=== PATIENT | female | born 1965 | race African-American/Black ===

== ENCOUNTER 2017-12-13 04:44 | Emergency (ER) | payer SELFPAY ==
[~2017-12-13] VITALS: Ht 180.3 cm; Wt 109.1 kg
[2017-12-13 05:15] VITALS: BP 142/95
[2017-12-13] MEDS ORDERED: OxyCODONE HCL/ACETAMINOPHEN 5-325 MG TABLET PO ONE (05:15)
[2017-12-13] MEDS ORDERED: CLINDAMYCIN HCL 150 MG CAPSULE PO ONE (05:15)
== END 2017-12-13 05:20 | disposition home or self-care (01) ==
LOC: EMS 04:44
DX: K04.7 Periapical abscess without sinus (principal); Z88.0 Allergy status to penicillin
CPT/HCPCS: 99283

== ENCOUNTER 2019-02-12 15:56 | Emergency (ER) | payer SELFPAY ==
[~2019-02-12] VITALS: Ht 180.3 cm; Wt 86.4 kg
[2019-02-12 17:33] VITALS: BP 145/93
[2019-02-12 17:59] LABS: APPEARANCE,URINE CLOUDY (CLEAR); BILIRUBIN,URINE NEGATIVE (NEGATIVE); GLUCOSE, URINE (UA) NEGATIVE (NEGATIVE); KETONES,URINE TRACE mg/dL (NEGATIVE); LEUKOCYTE ESTERASE ,URINE LARGE (NEGATIVE); NITRATE,URINE POSITIVE (NEGATIVE); OCCULT BLOOD,URINE MODERATE (NEGATIVE); PH,URINE 5.5 (5.0-8.0); PROTEIN,URINE POS 1+ (NEGATIVE)
[2019-02-12 18:07] LABS: BACTERIA,URINE Few /HPF (None Seen); RBC,URINE 0-2 /HPF (0-2); SQUAMOUS EPITHELIAL CELL,UR Few /LPF (None Seen); WBC,URINE >100 /HPF (0-5)
== END 2019-02-12 17:48 | disposition home or self-care (01) ==
LOC: EMS 15:57
DX: N39.0 Urinary tract infection, site not specified (principal); Z88.0 Allergy status to penicillin
CPT/HCPCS: 87086